=== PATIENT | male | born 1985 ===

== ENCOUNTER 2022-03-24 10:09 | Outpatient (CLI) | payer BC, SELFPAY ==
[2022-03-24 21:50] LABS: Albumin* 4.5 g/dL (3.3-5.0)
[2022-03-24 21:51] LABS: Chloride* 102 mmol/L (96-114); Potassium* 4.5 mmol/L (3.6-5.1); Sodium* 138 mmol/L (135-149)
[2022-03-24 21:54] LABS: Alanine Aminotransferase* 14 U/L (4-50); Alkaline Phosphatase* 64 U/L (40-150); Aspartate Amino Transferase* 23 U/L (12-35); Bilirubin Total* 0.9 mg/dL (0.1-1.5); Blood Urea Nitrogen* 12 mg/dL (5-24); Calcium* 9.4 mg/dL (8.4-10.6); Carbon Dioxide* 28 mmol/L (20-32); Cholesterol* 176 mg/dL (90-199); Creatinine* 0.7 mg/dL (0.5-1.5); Estimated Glomerular Filt Rate 122 ml/min; Glucose* 88 mg/dL (60-115); HDL Cholesterol* 42 mg/dL (>=40); LDL Cholesterol Calculated 106 mg/dL (<100); Total Protein* 7.2 g/dL (6.0-8.3); Triglycerides* 142 mg/dL (40-149)
== END 2022-03-24 10:10 | disposition home or self-care (01) ==
PROVIDERS: PCP Family Medicine; Visit Provider Family Medicine
DX: Z00.00 Encounter for general adult medical examination without abnormal findings (principal); I10 Essential (primary) hypertension; Z13.6 Encounter for screening for cardiovascular disorders; Z13.29 Encounter for screening for other suspected endocrine disorder
CPT/HCPCS: 80053; 80061; 84443